=== PATIENT | male | born 1965 | race African-American/Black ===

== ENCOUNTER 2017-05-23 02:31 | Emergency (ER) | payer OTHER ==
[~2017-05-23] VITALS: Ht 185.4 cm; Wt 84.0 kg
[~2017-05-23 02:31] MED LIST: AMLO5TAB22 PO; DICL50TA2 PO; LISI-360 PO; ROBA750T3 PO
[2017-05-23 02:41] VITALS: BP 165/87; PULSE 94; RESP 16; TEMP 98.5; O2SAT 99
== END 2017-05-23 03:04 | disposition left against medical advice (07) ==
LOC: NED 02:31
DX: Z53.21 Procedure and treatment not carried out due to patient leaving prior to being seen by health care provider (principal)
CPT/HCPCS: 99281